=== PATIENT | male | born 1950 | race African-American/Black ===

== ENCOUNTER 2020-02-26 10:12 | Emergency (ER) | payer OTHER ==
[2020-02-26 10:25] VITALS: TEMP 98.1; BMI 29.2
--- NOTE | 2020-02-26 10:42 | PDOC ---
Rapid Medical Evaluation Chief Complaint: Back Pain Time Seen by Provider: 02/26/20 10:30 Medical Evaluation: Allergies Allergy/AdvReac Type Severity Reaction Status Date / Time No Known Allergies Allergy Verified 02/26/20 10:23 Vital Signs Temp Pulse Resp BP Pulse Ox 98.1 F 87 20 131/72 99 02/26/20 10:23 02/26/20 10:23 02/26/20 10:23 02/26/20 10:23 02/26/20 10:23 02/26/20 10:39 I performed a brief in-person evaluation of this patient. Patient is a 69-year-old male with a history of hypertension who presents to the ED with diffuse low back pain for the last 2 days. He states that his pain started after cleaning the bathroom. He has taken Advil a couple times for his pain which has not helped at all. He also states that this morning after having a bowel movement he noticed red blood in the toilet water and with wiping. He states he does not typically get blood in his stool or have known hemorrhoids. Pertinent physical exam findings: Walking without ataxia, strength 5/5 bilateral lower extremities, no reproducible low back pain to palpation I have ordered the following: CBC, CMP, lumbar spine x-ray, stool guaiac Patient to proceed to ED for further evaluation. Discharge Disposition - Diagnosis Low back pain, Rectal bleed - Referrals - Patient Instructions - Post Discharge Activity
[2020-02-26 11:34] LABS: BASO % 1.3 % (0-2.0); EOS % 0.4 % (0-4.5); HEMATOCRIT 36.6 % (35.4-49); HEMOGLOBIN 11.9 GM/dL (11.7-16.9); LYMPH % 16.4 % (8-40); MCH 27.3 pg (25.7-33.7); MCHC 32.5 g/dl (32.0-35.9); MEAN PLT VOLUME 10.2 fl (7.5-11.1); MONO % 7.6 % (3.8-10.2); NEUT % 74.3 % (42.8-82.8); PLATELET COUNT 228 K/MM3 (134-434); RBC 4.35 M/mm3 (4.00-5.60); RDW 14.6 % (11.9-15.9); WHITE BLOOD COUNT 6.7 K/mm3 (4.0-10.0)
[2020-02-26] MEDS ORDERED: LIDOCAINE 5% TOPICAL PATCH TP ONE (12:00)
[2020-02-26] MEDS ORDERED: ACETAMINOPHEN 325 MG TABLET (FP) PO ONE (12:00)
--- NOTE | 2020-02-26 12:02 | PDOC ---
History of Present Illness - General Chief Complaint: Back Pain Stated Complaint: BACK PAIN Time Seen by Provider: 02/26/20 10:30 - History of Present Illness Initial Comments: HPI: 69yo M with PMH of HTN, prostate CA (in remission s/p radiation) presenting with lower abdominal pain. Patient reports that he was cleaning his bathroom on Tuesday morning, when she stood up straight and felt a sharp pain in her back. The pain is described as "grabbing." Since that time he has 10/10 pain when moving after laying down, but only 2-3/10 pain when active. Patient took one pill of ibuprofen yesterday without relief of pain. Denies saddle anesthesia, pain shooting down her legs, or urinary/fecal incontinence. Had a brown stool today but noticed a small amount of blood when he wiped. Has had normal colonoscopies in the past. No history of rectal bleed. Denies weakness, lightheadedness, syncope, or melena. No fever, chills, or night sweats. PCP: Dr. Gonzalez ROS: Constitutional: no fever, no chills HEENT: no throat pain, no dysphagia Cardiovascular: no chest pain, no palpitations Respiratory: no cough, no shortness of breath Gastrointestinal: no abdominal pain, no nausea Genitourinary: no dysuria, no hematuria Musculoskeletal: +back pain, no leg pain Skin: no rash, no itching Neurologic: no headache, no weakness Psych: no agitation, no anxiety PE: General: Awake, alert, and fully oriented, in no acute distress Head: No signs of trauma Eyes: EOMI, sclera anicteric ENT: Moist mucus membranes Neck: Normal ROM, supple Lungs: Lungs clear, Normal breath sounds Cardio: Regular rhythm, S1 and S2 present Abdomen: Soft, nontender. No guarding, no rebound, no masses Extremities: Normal range of motion, Distal pulses present Skin: Warm, Dry, normal turgor Neurologic: Cranial nerves II through XII grossly intact. Normal speech. Ambulates with stead gait. Rectal: The skin is without erythema or induration. No external hemorrhoids, fissures, skin tags, warts, or discharge. Sphincter tone normal. There are no masses palpated on digital exam. The prostate is firm, non-tender, without nodules. Manager Laboratory, GERRI Fernandes, present during entire rectal exam Back: Tender to palpation in lumbar area, both paraspinal and midline, no step- offs/deformities/fluctuance; no overlying wound or lesion ED Course/MDM: DDX including but not limited to MSK, spinal cord or cauda equina compression, metastatic cancer, spinal epidural abscess, vertebral osteomyelitis, vertebral compression fracture, radiculopathy, spinal stenosis, osteoarthritis, nephrolithiasis, herpes zoster Rectal exam with a small amount of blood, will check CBC for hemoglobin level While prostate CA is in remission, concern for metastasis; will obtain CT L spin e Tylenol Will reassess 02/26/20 12:02 CBC WBC 6.7 K/mm3 (4.0-10.0) 02/26/20 11:25 RBC 4.35 M/mm3 (4.00-5.60) 02/26/20 11:25 Hgb 11.9 GM/dL (11.7-16.9) 02/26/20 11:25 Hct 36.6 % (35.4-49) 02/26/20 11:25 MCV 84.0 fl (80-96) 02/26/20 11:25 MCH 27.3 pg (25.7-33.7) 02/26/20 11:25 MCHC 32.5 g/dl (32.0-35.9) 02/26/20 11:25 RDW 14.6 % (11.9-15.9) 02/26/20 11:25 Plt Count 228 K/MM3 (134-434) 02/26/20 11:25 MPV 10.2 fl (7.5-11.1) 02/26/20 11:25 Absolute Neuts (auto) 5.0 K/mm3 (1.5-8.0) 02/26/20 11:25 Neutrophils % 74.3 % (42.8-82.8) 02/26/20 11:25 Lymphocytes % 16.4 % (8-40) 02/26/20 11:25 Monocytes % 7.6 % (3.8-10.2) 02/26/20 11:25 Eosinophils % 0.4 % (0-4.5) 02/26/20 11:25 Basophils % 1.3 % (0-2.0) 02/26/20 11:25 Nucleated RBC % 0 % (0-0) 02/26/20 11:25 No leukocytosis or anemia Hgb normal CMP Sodium 142 mmol/L (136-145) 02/26/20 11:25 Potassium 4.6 mmol/L (3.5-5.1) 02/26/20 11:25 Chloride 111 mmol/L (98-107) H 02/26/20 11:25 Carbon Dioxide 22 mmol/L (21-32) 02/26/20 11:25 Anion Gap 10 MMOL/L (8-16) 02/26/20 11:25 BUN 21.3 mg/dL (7-18) H 02/26/20 11:25 Creatinine 1.2 mg/dL (0.55-1.3) 02/26/20 11:25 Est GFR (CKD-EPI)AfAm 70.58 02/26/20 11:25 Est GFR (CKD-EPI)NonAf 60.90 02/26/20 11:25 Random Glucose 102 mg/dL (74-106) 02/26/20 11:25 Calcium 9.5 mg/dL (8.5-10.1) 02/26/20 11:25 Total Bilirubin 0.4 mg/dL (0.2-1) 02/26/20 11:25 AST 30 U/L (15-37) 02/26/20 11:25 ALT 15 U/L (13-61) 02/26/20 11:25 Alkaline Phosphatase 65 U/L (45-117) 02/26/20 11:25 Total Protein 7.1 g/dl (6.4-8.2) 02/26/20 11:25 Albumin 3.4 g/dl (3.4-5.0) 02/26/20 11:25 Electrolytes unremarkable Cr normal No transaminitis FOBT positive, however hgb and VS stable; no weakness/dizziness/lightheadedness; patient is appropriate for outpatient follow-up with primary care physician regarding this CT as reported by radiology: "EXAM#: TYPE/EXAM: RESULT: [id number] CT/LUMBAR SPINE CT W/O CONTRAST Low back pain. History of prostate cancer CT scan of the lumbar spine without intravenous contrast. Coronal and sagittal reconstruction images were obtained. Compared to prior CT scan of the abdomen pelvis dated 08/10/2018 There is straightening of the lumbar spine. The height and alignment of the vertebral bodies appear unremarkable without evidence of a fracture or subluxation. L4-L5 mild broadbase disc bulge with suggestion of mild left paracentral disc protrusion slightly extending inferiorly. Mild bilateral facet hypertrophy L5-S1 mild mainly right paracentral and lateral disc bulge probably slightly impinging right S1 nerve root right L5 nerve root in the foramen. [id number] bilateral facet hypertrophy. No paraspinal soft tissue mass is seen. A few diverticula in included portion of the sigmoid colon without evidence of acute diverticulitis. Mild stranding of the perinephric fat, bilaterally which is nonspecific. There is a partially included, exophytic left adrenal nodule measuring 1.5 cm, of indeterminate consistency. Focal low-a ttenuation density in the right hepatic lobe, posteriorly measuring approximately 1 cm is again seen unchanged since prior CT scan of the abdomen and pelvis dated 08/10/2018 IMPRESSION: Straightening of the lumbar spine without evidence of a compression fracture or subluxation. L4-L5 mild mainly left paracentral disc bulge/protrusion with suggestion of minimal inferior exten buzz and mild bilateral facet hypertrophy L5-S1 mild mainly right paracentral/lateral disc bulge probably slightly impinging right S1 nerve root and reaching the right L5 nerve root in the foramen. Correlation with MRI of the lumbar spine would be helpful for further evaluation. Exophytic left renal nodule that is poorly characterized on this exam. There is also a 1 cm focal low-attenuation density in the right hepatic lobe, again seen. Please correlate with upper abdomen ultrasound for further characterization of their consistency. Reported By: Makenna Rivera MD 02/26/20 1327 " CT without acute findings requiring emergent intervention Patient feeling better after tylenol Ambulating with steady gait management specialist referral To follow up with primary care physician Return precautions Stable for discharge 02/26/20 15:15 Past History - Medical History Allergies/Adverse Reactions: Allergies Allergy/AdvReac Type Severity Reaction Status Date / Time No Known Allergies Allergy Verified 02/26/20 10:23 Home Medications: Ambulatory Orders Metoprolol/Hydrochlorothiazide [Metoprolol-Hctz 100-25 mg Tab] 1 each PO DAILY 11/17/14 Acetaminophen [Tylenol -] 1,000 mg PO Q6H PRN #30 tablet 02/26/20 Ibuprofen [Motrin -] 600 mg PO QID PRN #30 tablet 02/26/20 Lidocaine 5% Patch [Lidoderm -] 1 patch TP DAILY #14 patch 02/26/20 COPD: No HTN: Yes Hypercholesterolemia: Yes - Immunization History Immunization Up to Date: Yes - Psycho-Social/Smoking History Smoking History: Never smoked - Substance Abuse Hx (Audit-C & DAST Scrn) How often the patient has a drink containing alcohol: Never Score: In Men: 4 or > Positive; In Women: 3 or > Positive: 0 Screen Result (Pos requires Nsg. Audit-10AR): Negative In the last yr the pt used illegal drug/Rx for NonMed reason: No Score: Yes response is considered Positive: 0 Screen Result (Positive result requires Nsg. DAST-10): Negative *Physical Exam - Vital Signs Last Vital Signs Temp Pulse Resp BP Pulse Ox 98.1 F 87 20 131/72 99 02/26/20 10:23 02/26/20 10:23 02/26/20 10:23 02/26/20 10:23 02/26/20 10:23 ED Treatment Course - LABORATORY CBC & Chemistry Diagram: 02/26/20 11:25 02/26/20 11:25 - ADDITIONAL ORDERS Additional order review: 02/26/20 11:25 RBC 4.35 MCV 84.0 MCHC 32.5 RDW 14.6 MPV 10.2 Neutrophils % 74.3 Lymphocytes % 16.4 Monocytes % 7.6 Eosinophils % 0.4 Basophils % 1.3 Discharge - Discharge Information Problems reviewed: Yes Clinical Impression/Diagnosis: Rectal bleed Low back pain Qualifiers: Chronicity: acute Back pain laterality: bilateral Sciatica presence: unspecified whether sciatica present Qualified Code(s): M54.5 - Low back pain Condition: Stable Disposition: HOME - Additional Discharge Information Prescriptions: Lidocaine 5% Patch [Lidoderm -] 1 patch TP DAILY #14 patch Ibuprofen [Motrin -] 600 mg PO QID PRN #30 tablet PRN Reason: Pain Acetaminophen [Tylenol -] 1,000 mg PO Q6H PRN #30 tablet PRN Reason: Pain - Follow up/Referral Referrals: Kenneth Gonzalez MD [Primary Care Provider] - Jose Powell MD [Staff Physician] - - Patient Discharge Instructions Patient Printed Discharge Instructions: DI for Low Back Pain Additional Instructions: You came to the emergency department for back pain. Blood work and imaging did not show acute pathology. We have referred you to a commercial lawn specialist if your pain does not improve. You can call and make an appointment. You can take [id number] tylenol for your pain.. Follow the instructions on the medication bottle. Make sure you do not take too much medicine. The maximum daily dose for tylenol is 4000mg/day. Your rectal exam did show some blood, but your hemoglobin was normal. It is important to follow up with your primary care doctor this week to discuss this visit and further assess your symptoms. Immediate medical attention is required if you have back pain and : numbness in the genital or rectal area, loss of bowel or bladder control, difficulty with urination; fever, unexplained weight loss, or other signs of illness or infection. If you think you are having an emergency, call for emergency medical services or present to the emergency department right away. - Post Discharge Activity
[2020-02-26] MEDS ORDERED: ACETAMINOPHEN 325 MG TABLET (FP) ONE (12:07)
[2020-02-26] MEDS ORDERED: LIDOCAINE 5% TOPICAL PATCH ONE (12:07)
[2020-02-26 12:14] LABS: ALBUMIN 3.4 g/dl (3.4-5.0); BILIRUBIN,TOTAL 0.4 mg/dL (0.2-1); BLOOD UREA NITROGEN 21.3 mg/dL (7-18); CALCIUM 9.5 mg/dL (8.5-10.1); CREATININE 1.2 mg/dL (0.55-1.3); POTASSIUM 4.6 mmol/L (3.5-5.1); TOT PROT 7.1 g/dl (6.4-8.2)
[2020-02-26 15:41] VITALS: BP 128/68; PULSE 81
[2020-02-26] MEDS ORDERED: LIDOCAINE PATCH REMOVAL MC SCH (22:00)
--- NOTE | 2020-02-28 19:46 | PDOC ---
Documentation entered by Tyrell Bahena SCRIBE, acting as scribe for Shannon Shah MD. Shannon Shah MD: This documentation has been prepared by the Sophia sauceda inTyrell SCRIBE, under my direction and personally reviewed by me in its entirety. I confirm that the documentation accurately reflects all work, treatment, procedures, and medical decision making performed by me. Attending Attestation - Resident Resident Name: KikaBetzaidaKaruna - ED Attending Attestation I have performed the following: I have examined & evaluated the patient, The case was reviewed & discussed with the resident, I agree w/resident's findings & plan, Exceptions are as noted - HPI HPI: 02/26/20 12:22 The patient is a 69 year old male with a significant past medical history of HTN who presents to the emergency department for evaluation of lower back pain that began two days ago when he stood up after bending down. The patient reports pain is 2-3/10 while laying down and 10/10 with standing. 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 The patient denies chest/abdominal pain, cough, and shortness of breath. Denies fever, chills, nausea, vomiting, and/or any GI symptoms. Denies any symptoms. Denies any other symptoms. Allergies: NKDA PCP: Dr. Gonzalez - Physicial Exam PE: 02/26/20 11:33 GENERAL: Awake, alert, and fully oriented, in no acute distress HEAD: No signs of trauma EYES: PERRLA, EOMI, sclera anicteric, conjunctiva clear ENT: Auricles normal inspection, hearing grossly normal, nares patent, oropharynx clear without exudates. Moist mucosa NECK: Normal ROM, supple, no lymphadenopathy, JVD, or masses LUNGS: Breath sounds equal, clear to auscultation bilaterally. No wheezes, and no crackles HEART: Regular rate and rhythm, normal S1 and S2, no murmurs, rubs or gallops ABDOMEN: Soft, nontender, normoactive bowel sounds. No guarding, no rebound. No masses EXTREMITIES: Normal range of motion, no edema. No clubbing or cyanosis. No cords, erythema, or tenderness NEUROLOGICAL: Cranial nerves II through XII grossly intact. Normal speech, normal gait SKIN: Warm, Dry, normal turgor, no rashes or lesions noted. - Medical Decision Making 02/28/20 19:43 Pt presents to the Ed complaining of atrauatic lower back pain without neurologic, bowel or bladder complaints. CT checked to evaluate for fracture or lytic lesion and is negative. Will discharge home . Discharge - Discharge Information Problems reviewed: Yes Clinical Impression/Diagnosis: Rectal bleed Low back pain Qualifiers: Chronicity: acute Back pain laterality: bilateral Sciatica presence: without sciatica Qualified Code(s): M54.5 - Low back pain Condition: Stable Disposition: HOME - Additional Discharge Information Prescriptions: Lidocaine 5% Patch [Lidoderm -] 1 patch TP DAILY #14 patch Ibuprofen [Motrin -] 600 mg PO QID PRN #30 tablet PRN Reason: Pain Acetaminophen [Tylenol -] 1,000 mg PO Q6H PRN #30 tablet PRN Reason: Pain - Follow up/Referral Referrals: Jose Powell MD [Staff Physician] - Kenneth Gonzalez MD [Primary Care Provider] - - Patient Discharge Instructions Patient Printed Discharge Instructions: DI for Low Back Pain Additional Instructions: You came to the emergency department for back pain. Blood work and imaging did not show acute pathology. We have referred you to a health science specialist if your pain does not improve. You can call and make an appointment. You can take [id number] tylenol for your pain.. Follow the instructions on the medication bottle. Make sure you do not take too much medicine. The maximum daily dose for tylenol is 4000mg/day. Your rectal exam did show some blood, but your hemoglobin was normal. It is important to follow up with your primary care doctor this week to discuss this visit and further assess your symptoms. Immediate medical attention is required if you have back pain and : numbness in the genital or rectal area, loss of bowel or bladder control, difficulty with urination; fever, unexplained weight loss, or other signs of illness or infection. If you think you are having an emergency, call for emergency medical services or present to the emergency department right away. - Post Discharge Activity
== END 2020-02-26 15:42 | disposition home or self-care (01) ==
LOC: JER 10:12
DX: M54.5 Low back pain (principal); K62.5 Hemorrhage of anus and rectum
CPT/HCPCS: 36415; 72100-TC-FY; 72131-TC; 80053; 82272; 85025; 99285-25

== ENCOUNTER 2023-01-04 10:29 | Emergency (ER) | payer OTHER ==
[2023-01-04 10:36] VITALS: BP 140/74; PULSE 97; RESP 19; TEMP 98.4; BMI 27.3
[2023-01-04] MEDS ORDERED: LIDOCAINE 5% TOPICAL PATCH TP ONE (11:16)
[2023-01-04] MEDS ORDERED: KETOROLAC TROMETHAMINE 30 MG/1 ML VIAL IM ONE (11:16)
[2023-01-04] MEDS ORDERED: KETOROLAC TROMETHAMINE 30 MG/1 ML VIAL ONE (11:32)
[2023-01-04] MEDS ORDERED: LIDOCAINE 5% TOPICAL PATCH ONE (11:32)
[2023-01-04] MEDS ORDERED: LIDOCAINE PATCH REMOVAL MC SCH (22:00)
== END 2023-01-04 13:03 | disposition home or self-care (01) ==
LOC: JERFT 10:29
PROC: 3E0233Z Introduction of Anti-inflammatory into Muscle, Percutaneous Approach (ICD-10-PCS; principal; 2023-01-04)
DX: M54.50 Low back pain, unspecified (principal)
CPT/HCPCS: 72100-TC-FY; 99284-25

== ENCOUNTER 2023-12-26 14:08 | Emergency (ER) | payer OTHER ==
[2023-12-26 14:19] VITALS: BP 138/63; PULSE 72; RESP 18; TEMP 98.2; BMI 27.8
[2023-12-26 16:30] LABS: BASO % 0.7 % (0-2.0); EOS % 0.1 % (0-4.5); HEMATOCRIT 34.9 % (35.4-49); HEMOGLOBIN 11.4 GM/dL (11.7-16.9); LYMPH % 10.5 % (8-40); MCH 27.7 pg (25.7-33.7); MCHC 32.7 g/dl (32.0-35.9); MEAN CELL VOLUME 84.8 fl (80-96); MEAN PLT VOLUME 9.2 fl (7.5-11.1); MONO % 5.8 % (3.8-10.2); NEUT % 82.9 % (42.8-82.8); PLATELET COUNT 202 10^3/uL (134-434); RBC 4.12 M/mm3 (4.00-5.60); RDW 14.1 % (11.9-15.9); WHITE BLOOD COUNT 8.2 K/mm3 (4.0-10.0)
[2023-12-26 16:38] LABS: INR 1.05 (0.83-1.09); PROTHROMBIN TIME (PATIENT) 11.8 SEC (9.7-13.0)
[2023-12-26 16:41] LABS: ACTIVATED PTT 29.3 SECONDS (25.2-36.5)
[2023-12-26 16:42] LABS: PH,URINE 5.5 (5.0-8.0); URINE APPEARANCE CLEAR; URINE BILIRUBIN NEGATIVE (NEGATIVE); URINE COLOR YELLOW; URINE GLUCOSE (UA) NEGATIVE (NEGATIVE); URINE KETONE NEGATIVE (NEGATIVE); URINE LEUK ESTERASE NEGATIVE (NEGATIVE); URINE NITRITE NEGATIVE (NEGATIVE); URINE PROTEIN NEGATIVE (NEGATIVE)
[2023-12-26 16:43] LABS: POTASSIUM 4.5 mmol/L (3.5-5.1)
[2023-12-26 16:45] LABS: CALCIUM 9.9 mg/dL (8.5-10.1)
[2023-12-26 16:46] LABS: ALBUMIN 3.5 g/dl (3.4-5.0); BLOOD UREA NITROGEN 20.1 mg/dL (7-18); MAGNESIUM 2.3 mg/dL (1.8-2.4)
[2023-12-26 16:49] LABS: CREATININE 1.2 mg/dL (0.55-1.3); PHOSPHOROUS 2.7 mg/dL (2.5-4.9)
[2023-12-26 16:50] LABS: BILIRUBIN,TOTAL 0.5 mg/dL (0.2-1); TOT PROT 6.9 g/dl (6.4-8.2)
[2023-12-26] MEDS ORDERED: MECLIZINE HCL 25 MG TABLET (FP) ONE (17:06)
[2023-12-26] MEDS: MECLIZINE HCL 25 MG TABLET (FP) PO ONE (17:08)
== END 2023-12-26 18:11 | disposition home or self-care (01) ==
LOC: JER 14:08
DX: H81.10 Benign paroxysmal vertigo, unspecified ear (principal)
CPT/HCPCS: 36415; 71045-TC-FY; 80053; 81003; 83735; 84100; 84484; 85025; 85610; 85730; 87086; 87186; 93005; 93010; 99285-25